=== PATIENT | female | born 1955 | race Caucasian/White ===

== ENCOUNTER 2017-09-27 08:20 | Inpatient (IN) ==
[2017-09-21 17:50] LABS: Appearance,Urine HAZY; Bacteria,Urine 0 /hpf (0); Bilirubin,Urine NEG (NEG); Color,Urine YELLOW; Glucose,Urine (UA) NEGATIVE (NEG); Leukocyte Esterase,Urine 25 /uL (NEG); Mucus,Urine MANY /hpf (0); Nitrate,Urine NEG (NEG); Protein,Urine NEG (NEG); Specific Gravity,Urine 1.024 (1.000-1.035); Urine Blood NEG mg/dL (<0.03); Urine Hyaline Cast 3 /lpf (0-2); Urine RBC 2 /hpf (0-1); Urine Squamous Epithelial Cell 3 /hpf (0-4); Urine Transitional Epi Cells 1 /hpf (0-2); Urine WBC 3 /hpf (0-4)
[2017-09-21 17:57] LABS: Basophils # (Auto) 0 K/mcL (0.0-0.3); Basophils % (Auto) 0.3 % (0.0-2.0); Eosinophils # (Auto) 0.3 K/mcL (0.0-0.7); Eosinophils % (Auto) 3.5 % (0.0-7.0); Granulocytes % (Auto) 49.6 % (38.0-78.0); Lymphocytes # (Auto) 3.3 K/mcL (1.5-4.8); Lymphocytes % (Auto) 39.4 % (15.5-49.0); Mean Cell Volume 93.4 fL (80.0-100.0); Mean Corpuscular HGB Conc 33.2 g/dL (31.0-36.0); Monocytes # (Auto) 0.6 K/mcL (0.1-0.9); Monocytes % (Auto) 7.2 % (1.0-12.0); Platelet Count 169 K/mcL (140-440); RBC 4.21 M/mcL (4.00-5.20); Red Cell Distribution Width 14.9 % (11.5-14.5)
[2017-09-21 17:58] LABS: Blood Urea Nitrogen 13 mg/dl (6-20)
[~2017-09-27 08:20] MED LIST: CELECOXIB 200 MG CAPSULE PO SCH; PREGABALIN 75 MG CAPSULE PO SCH; ceFAZolin 1 GM VIAL IV SCH; oxyCODONE 10 MG TAB.ER.12H PO SCH
[2017-09-27] MEDS ORDERED: ONDANSETRON 4 MG/2 ML VIAL IV ONE (10:55)
[2017-09-27] MEDS ORDERED: TRANEXAMIC ACID 1,000 MG/10 ML VIAL IV ONE ×2 (10:55→12:19)
[2017-09-27] MEDS ORDERED: PROPOFOL 200 MG/20 ML VIAL IV ONE (10:55)
[2017-09-27] MEDS ORDERED: LIDOCAINE HCL/PF 100 MG/5 ML SYRINGE IV ONE (10:55)
[2017-09-27] MEDS ORDERED: MIDAZOLAM 2 MG/2 ML VIAL IV ONE (10:55)
[2017-09-27] MEDS ORDERED: GLYCOPYRROLATE 0.2 MG/ML VIAL IV ONE (10:55)
[2017-09-27] MEDS ORDERED: PHENYLEPHRINE 10 MG/ML VIAL IV ONE (10:55)
[2017-09-27] MEDS ORDERED: DEXAMETHASONE 10 MG/ML VIAL IV ONE (10:55)
[2017-09-27] MEDS ORDERED: HEPARIN 20,000 UNIT/ML VIAL IR ONE (11:30)
[2017-09-27] MEDS ORDERED: FLUMAZENIL 0.1 MG/ML ML IV PRN (12:14)
[2017-09-27] MEDS ORDERED: PROMETHAZINE 25 MG/ML VIAL IV PRN (12:14)
[2017-09-27] MEDS ORDERED: fentaNYL 100 MCG/2 ML VIAL IV PRN (12:14)
[2017-09-27] MEDS ORDERED: ONDANSETRON 4 MG/2 ML VIAL IV PRN ×2 (12:14→12:19)
[2017-09-27] MEDS ORDERED: ACETAMINOPHEN 1,000 MG/100 ML BOTTLE IV ONE (12:14)
[2017-09-27] MEDS ORDERED: NALOXONE HCL 0.4 MG/ML VIAL IV PRN (12:14)
[2017-09-27] MEDS ORDERED: LACTATED RINGERS 250 ML IV PRN (12:14)
[2017-09-27] MEDS ORDERED: IPRATROPIUM/ALBUTEROL 3 ML AMPUL.NEB NEB PRN (12:14)
[2017-09-27] MEDS ORDERED: LACTATED RINGERS 1,000 ML IV SCH (12:15)
[2017-09-27] MEDS ORDERED: BENZOCAINE/MENTHOL 1 LOZENGE PO PRN (12:19)
[2017-09-27] MEDS ORDERED: POLYETHYLENE GLYCOL 3350 17 GM PACKET PO PRN (12:19)
[2017-09-27] MEDS ORDERED: HYDROmorphone 2 MG/ML SYRINGE IV PRN (12:19)
[2017-09-27] MEDS ORDERED: MAGNESIUM HYDROXIDE 30 ML ORAL.SUSP PO PRN (12:19)
[2017-09-27] MEDS ORDERED: KETOROLAC 30 MG/ML VIAL IV PRN (12:19)
[2017-09-27] MEDS ORDERED: FLEETS ADULT ENEMA PR PRN (12:19)
[2017-09-27] MEDS ORDERED: BISACODYL 10 MG SUPP.RECT PR PRN (12:19)
--- NOTE | 2017-09-27 12:19 | Brief Operative Note ---
Date of procedure: 09/27/17 Pre-op diagnosis: R hip severe DJD Post-op diagnosis: same Procedure: Right anterior total hip arthroplasty Grafts/Implants: Yes (Depuy 7 HO Actis stem, +1 32mm delta head, 50mm cup, neutral altrx liner) Anesthesia: spinal, GLMA Findings: severe arthritis Complications: none Surgeon: Hakeem Wilcox Metal Refiner: Mark De La Paz Estimated blood loss (cc): 300 Specimens Removed/Pathology: none sent Condition: stable Disposition: PACU
[2017-09-27] MEDS ORDERED: traMADol 50 MG TABLET PO PRN (12:23)
[2017-09-27] MEDS: MEPERIDINE 25 MG/ML SYRINGE IV PRN ×2 (13:00→13:06)
--- NOTE | 2017-09-27 13:49 | XRay Report ---
CLINICAL INFORMATION: Post-op Total Hip COMPARISON: None. FINDINGS: Right total hip prostheses is anatomically aligned. There is no osseous abnormality. Both SI and hip joints are normal. Soft tissue swelling seen as expected IMPRESSION: Negative Interpreted and Authenticated by: Juno Walters 09/27/17
[2017-09-27] MEDS: 0.9 % SODIUM CHLORIDE 1,000 ML IV SCH ×2 (14:47→21:39)
[2017-09-27] MEDS: 0.9 % SODIUM CHLORIDE 10 ML SYRINGE IV SCH ×2 (14:48→21:39)
--- NOTE | 2017-09-27 15:05 | Discharge Summary ---
Ortho Discharge - [facility] - Patient Instructions Diet: Regular Diet Activity: activity as tolerated, weight bearing as tolerated Total Hip Protocol: Follow activity instructions as provided by Physical Therapy. Dressing Care: May shower in 2 days, Grayson Ag - leave on for 5 days - Follow Up Plan Follow Up Appointments: Michael Ferrari PA-C [Physician Driller And Broacher] - Disposition: Home, Self-Care Prognosis: Good Rehab Potential: Good - Orders For Discharge Additional Discharge Orders: Physical Therapy at Discharge - [facility] Location: Determined By Patient Toilet Riser Discharge Order Location: Determined By Patient Walker Location: Determined By Patient
[2017-09-27] MEDS: oxyCODONE/APAP 5/325MG TABLET PO PRN ×2 (18:17→22:35)
--- NOTE | 2017-09-27 18:37 | XRay Report ---
CLINICAL INFORMATION: INTRA OP RIGHT TOTAL HIP ARTHROPLASTY ANTERIOR COMPARISON: None. FINDINGS: Images from the OR show right total hip prostheses which is anatomically aligned. No osseous abnormalities. Soft tissues normal IMPRESSION: ] Right hip prostheses which is anatomically aligned Interpreted and Authenticated by: Juno Walters 09/27/17
[2017-09-27] MEDS: ceFAZolin 1 GM VIAL IV SCH (20:23)
[2017-09-27] MEDS: ASPIRIN 325 MG ENTERIC COATED TABLET PO SCH (20:24)
[2017-09-27] MEDS: DOCUSATE SODIUM 100 MG CAPSULE PO SCH (20:24)
[2017-09-27] MEDS ORDERED: SERTRALINE 50 MG TABLET PO SCH (21:00)
[2017-09-27] MEDS ORDERED: SENNOSIDES 1 TABLET PO SCH (21:00)
[2017-09-27] MEDS ORDERED: traZODone HCL 50 MG TABLET PO SCH (21:00)
[2017-09-28] MEDS: oxyCODONE/APAP 5/325MG TABLET PO PRN ×2 (03:34→09:05)
[2017-09-28] MEDS: 0.9 % SODIUM CHLORIDE 10 ML SYRINGE IV SCH (05:09)
[2017-09-28] MEDS: ceFAZolin 1 GM VIAL IV SCH (05:09)
[2017-09-28] MEDS: 0.9 % SODIUM CHLORIDE 1,000 ML IV SCH (06:39)
[2017-09-28] MEDS ORDERED: ASCORBIC ACID 500 MG TABLET PO SCH (09:00)
[2017-09-28] MEDS: ASPIRIN 325 MG ENTERIC COATED TABLET PO SCH (09:05)
[2017-09-28] MEDS: DOCUSATE SODIUM 100 MG CAPSULE PO SCH (09:05)
--- NOTE | 2017-09-28 09:06 | Operative Note ---
DATE OF OPERATION: 09/27/2017 PREOPERATIVE DIAGNOSIS: Right hip severe osteoarthritis. POSTOPERATIVE DIAGNOSIS: Right hip severe osteoarthritis. PROCEDURE PERFORMED: Right total hip arthroplasty through a direct anterior approach using the DePuy Actis size 7 high offset femoral stem; a +1, 32 mm delta ceramic head ball with a 50 mm [place] cup and a neutral AltrX liner. SURGEON: Hakeem Wilcox M.D. ART DEALER: Mark De La Paz PA-C. ANESTHESIA: Spinal plus general. DRAINS: None. SPECIMENS: Femoral head and reamings, which were discarded. BLOOD LOSS: 300 mL. COMPLICATIONS: None. POSTOPERATIVE CONDITION: Stable. INDICATIONS FOR SURGERY: This is a 61-year-old female who has had rapidly progressing severe right hip pain. Radiographs showed severe ccci-gl-nvte osteoarthritis. FINDINGS AT SURGERY: As above. Post implantation showed good equalization of leg length and offset with components in satisfactory position. PROCEDURE IN DETAIL: The patient had been seen preoperatively. Informed consent had been obtained after discussion of risks and benefits of surgery. Risks including, but not limited to, bleeding, possibly requiring transfusion; infection, possibly requiring implant removal and prolonged IV antibiotics; injury to nerves, blood vessels or other surrounding structures; anesthetic risks; leg length discrepancy; dislocation; fracture; DVT and pulmonary embolus risks; and the possibility of needing further revision surgery. She understood these risks and wished to proceed. Correct operative site was marked and then patient was taken to the operating room. General anesthesia was induced after getting spinal in preop holding. She was carefully positioned on the fracture table, and the right hip and groin were carefully prepped and draped in normal sterile fashion, and a time-out was performed verifying patient name, operative site, and plan. Standard anterior approach incision was made with a scalpel through skin and subcutaneous tissue. Careful blunt dissection was taken down. She did not have the normal tensor muscle belly configuration and fascia. We did place a ring retractor area after irrigating with Irrisept. We then dissected small tensor muscle belly lateral and then placed our blunt cobra retractors. We coagulated and cut circumflex vessels, and then anterior capsulectomy was performed as well as capsule releases. Corkscrew was placed in the femoral head and then osteotome used under fluoro to identify our neck cut trajectory. We then used an oscillating tip saw to osteotomize the neck and then the head was removed. The acetabulum was exposed and soft tissue removed circumferentially and from the floor. We then started reaming, directly medializing to the tear drop and then increasing reamer size and angle until a 49 mm got rim ream. We trialed a 49 and had press-fit, so a 50, 3-hole [place] cup was opened. We irrigated the acetabulum with Irrisept. After a minute, we pulse lavaged copiously with saline and then impacted the cup at approximately 35 to 40 degrees of inclination and 25 to 30 degrees of anteversion. We did get good press-fit, so we went ahead and placed a center hole cover and a neutral AltrX liner. She did have some anterior osteophyte which was removed with a curved osteotome. We then exposed the proximal femur after removing traction. We externally rotated and adducted. Capsule releases were done out to the trochanter laterally and then along the posterior neck. We then prepared the femur with the sequential broaching using the Actis, a size 7 as eventually the size that seated at the neck cut level. We trialed initially a standard offset with a +1 head ball. Our leg length was good on fluoro check. However, offset was under offset, so we went ahead and opened a 7 high offset stem. The femoral canal was irrigated with Irrisept. After a minute, pulse lavage with saline. We impacted the 7 high offset Actis stem. It seated down on the neck cut of the collar so we went ahead and opened a +1, 32 mm delta ceramic head ball. The stem was carefully cleaned and dried and then the head ball briskly impacted. We then reduced the hip. Final fluoro images were taken which showed excellent mandaeism of leg length and offset. We saved and printed those images. We irrigated with Irrisept again. After a minute, pulse lavage with saline. We closed the tensor fascia with running #1 Vicryl, one proximal and one running distal. Final Irrisept irrigation was done. After a minute, final pulse lavage, and then fat was tacked to fascia and then Monocryl for subcutaneous and glenroy for skin. Xeroform and sterile dressing were applied and the patient was awakened, extubated, and transferred to recovery in stable condition. REE:margarita Job ID: [id number] Doc ID: [id number] Hakeem Wilcox MD
== END 2017-09-28 10:22 | disposition home or self-care (01) | DRG 470 ==
LOC: MEDSUR 08:20
PROVIDERS: ADMIT Orthopaedic Surgery; ATTEND Orthopaedic Surgery

== ENCOUNTER 2018-06-27 07:25 | Inpatient (IN) ==
[2018-06-25 12:20] LABS: Blood Urea Nitrogen 21 mg/dl (8-23)
[2018-06-25 12:32] LABS: Basophils # (Auto) 0 K/mcL (0.0-0.3); Basophils % (Auto) 0.5 % (0.0-2.0); Eosinophils # (Auto) 0.2 K/mcL (0.0-0.7); Eosinophils % (Auto) 4.3 % (0.0-7.0); Granulocytes % (Auto) 58.4 % (38.0-78.0); Lymphocytes # (Auto) 1.7 K/mcL (1.5-4.8); Lymphocytes % (Auto) 29.3 % (15.5-49.0); Mean Cell Volume 91.5 fL (80.0-100.0); Mean Corpuscular HGB Conc 33.3 g/dL (31.0-36.0); Mean Corpuscular Hemoglobin 30.5 pg (26.0-34.0); Monocytes # (Auto) 0.4 K/mcL (0.1-0.9); Monocytes % (Auto) 7.5 % (1.0-12.0); Platelet Count 122 K/mcL (140-440); RBC 3.92 M/mcL (4.00-5.20); Red Cell Distribution Width 16.1 % (11.5-14.5)
[2018-06-25 13:45] LABS: Appearance,Urine CLEAR; Bacteria,Urine FEW /hpf (0); Bilirubin,Urine NEG (NEG); Calcium Oxalate Crystals,Urine MOD /hpf (0); Color,Urine YELLOW; Glucose,Urine (UA) NEGATIVE (NEG); Leukocyte Esterase,Urine 25 /uL (NEG); Mucus,Urine FEW /hpf (0); Protein,Urine NEG (NEG); Specific Gravity,Urine 1.021 (1.000-1.035); Urine Blood NEG mg/dL (<0.03); Urine RBC 5 /hpf (0-1); Urine Squamous Epithelial Cell 6 /hpf (0-4); Urine WBC 1 /hpf (0-4)
[~2018-06-27 07:25] MED LIST changes: +0.9 % SODIUM CHLORIDE 9 ML, KETOROLAC 30 MG, ROPIVACAINE HCL/PF 49.5 ML, EPINEPHrine 0.... IJ SCH
[2018-06-27] MEDS ORDERED: FLUMAZENIL 0.1 MG/ML ML IV PRN (11:07)
[2018-06-27] MEDS ORDERED: MEPERIDINE 25 MG/ML SYRINGE IV PRN (11:07)
[2018-06-27] MEDS ORDERED: METHOCARBAMOL 1,000 MG/10 ML VIAL IV PRN (11:07)
[2018-06-27] MEDS ORDERED: ACETAMINOPHEN 1,000 MG/100 ML BOTTLE IV ONE (11:07)
[2018-06-27] MEDS ORDERED: ePHEDrine 50 MG/ML AMPUL IV PRN (11:07)
[2018-06-27] MEDS ORDERED: IPRATROPIUM/ALBUTEROL 3 ML AMPUL.NEB NEB PRN (11:07)
[2018-06-27] MEDS ORDERED: PROMETHAZINE 25 MG/ML VIAL IV PRN (11:07)
[2018-06-27] MEDS ORDERED: NALOXONE HCL 0.4 MG/ML VIAL IV PRN (11:07)
[2018-06-27] MEDS ORDERED: HYDROmorphone 2 MG/ML VIAL IV PRN (11:07)
[2018-06-27] MEDS ORDERED: diphenhydrAMINE 50 MG/ML VIAL IV PRN (11:07)
[2018-06-27] MEDS ORDERED: PROMETHAZINE 25 MG/ML VIAL IM PRN (11:07)
[2018-06-27] MEDS ORDERED: ONDANSETRON 4 MG/2 ML VIAL IV PRN ×2 (11:07→11:38)
[2018-06-27] MEDS ORDERED: METOPROLOL TARTRATE 5 MG/5 ML VIAL IV PRN (11:07)
[2018-06-27] MEDS ORDERED: fentaNYL 100 MCG/2 ML VIAL IV PRN (11:07)
[2018-06-27] MEDS ORDERED: MEPERIDINE 50 MG/ML INJECTION IM PRN (11:07)
--- NOTE | 2018-06-27 11:35 | Brief Operative Note ---
Date of procedure: 06/27/18 Pre-op diagnosis: tibial plateau fracture w subsidence s/p L bicomp arthroplasty Post-op diagnosis: same Procedure: 1)Removal of bicomp arthroplasty 2)Revision total knee arthroplasty Grafts/Implants: Yes (3 PS Bipin Triatholon femur, 3 tibia w stem, 11 x3 insert) Anesthesia: spinal, GLMA Findings: tibial plateau nonunion w subsidence Complications: none Surgeon: Hakeem Wilcox Screen Printing Inspector: Michael Ferrari Estimated blood loss (cc): 30 Specimens Removed/Pathology: other (bicomp components, c&s)
[2018-06-27] MEDS ORDERED: MAGNESIUM HYDROXIDE 30 ML ORAL.SUSP PO PRN (11:38)
[2018-06-27] MEDS ORDERED: BENZOCAINE/MENTHOL 1 LOZENGE PO PRN (11:38)
[2018-06-27] MEDS ORDERED: TRANEXAMIC ACID 1,000 MG/10 ML VIAL IV SCH (11:38)
[2018-06-27] MEDS ORDERED: POLYETHYLENE GLYCOL 3350 17 GM PACKET PO PRN (11:38)
[2018-06-27] MEDS ORDERED: FLEETS ADULT ENEMA PR PRN (11:38)
[2018-06-27] MEDS ORDERED: BISACODYL 10 MG SUPP.RECT PR PRN (11:38)
--- NOTE | 2018-06-27 12:23 | XRay Report ---
CLINICAL INFORMATION: Total knee revision COMPARISON: 07/19/2017. FINDINGS: Total knee prostheses is in anatomic alignment. No osseous abnormality. Soft tissues swelling seen as expected. IMPRESSION: Negative Interpreted and Authenticated by: Juno Walters 06/27/18
[2018-06-27] MEDS: 0.9 % SODIUM CHLORIDE 1,000 ML IV SCH ×2 (12:56→23:12)
[2018-06-27] MEDS: 0.9 % SODIUM CHLORIDE 10 ML SYRINGE IV SCH ×2 (13:14→21:02)
[2018-06-27] MEDS: HYDROcodone/APAP 10/325MG TABLET PO PRN ×2 (14:11→20:54)
[2018-06-27] MEDS: HYDROmorphone 2 MG/ML VIAL IV PRN (17:11)
[2018-06-27] MEDS: ceFAZolin 1 GM VIAL IV SCH (17:27)
[2018-06-27] MEDS: DOCUSATE SODIUM 100 MG CAPSULE PO SCH (20:55)
[2018-06-27] MEDS: ASPIRIN 325 MG ENTERIC COATED TABLET PO SCH (20:55)
[2018-06-27] MEDS ORDERED: SENNOSIDES 1 TABLET PO SCH (21:00)
[2018-06-27] MEDS ORDERED: SERTRALINE 50 MG TABLET PO SCH (21:00)
[2018-06-27] MEDS ORDERED: traZODone HCL 100 MG TABLET PO SCH (21:00)
[2018-06-28] MEDS: 0.9 % SODIUM CHLORIDE 10 ML SYRINGE IV SCH ×2 (00:54→05:26)
[2018-06-28] MEDS: ceFAZolin 1 GM VIAL IV SCH (00:54)
[2018-06-28] MEDS: HYDROcodone/APAP 10/325MG TABLET PO PRN ×2 (01:06→05:25)
[2018-06-28] MEDS: HYDROmorphone 2 MG/ML VIAL IV PRN ×2 (03:24→08:19)
--- NOTE | 2018-06-28 07:35 | Operative Note ---
DATE OF OPERATION: 06/27/2018 PREOPERATIVE DIAGNOSIS: Left medial tibial plateau fracture status post bicompartmental arthroplasty with subsequent subsidence of the tibial component. POSTOPERATIVE DIAGNOSIS: Left medial tibial plateau fracture status post bicompartmental arthroplasty with subsequent subsidence of the tibial component. PROCEDURES PERFORMED: 1. Removal of bicompartmental knee arthroplasty. 2. Revision total knee arthroplasty with placement of a Bipin Triathlon size 3 posterior stabilized femoral component, size 3 tibial baseplate with a 14 mm 100 length stem and a 10 mm medial augment with an 11 mm X3 tibial insert. SURGEON: Hakeem Wilcox MD SCREWDOWN OPERATOR: Betito Ferrari PA-C. ANESTHESIA: Spinal plus general. DRAINS: None. SPECIMENS REMOVED: Bicompartmental arthroplasty components as well as a culture and sensitivity. BLOOD LOSS: 30 mL COMPLICATIONS: None. POSTOPERATIVE CONDITION: Stable. INDICATIONS FOR SURGERY: This is a 62-year-old female who I believe nearly a year ago underwent a bicompartmental knee arthroplasty. She had films done at 6 weeks which showed no apparent fracture. She apparently continued to have pain and followed up in December of this year and x-rays did not show obvious fracture. She continued having pain and came in more recently and x-rays were taken and there was a medial tibial plateau fracture with significant subsidence of the medial tibial component. FINDINGS AT SURGERY: There was a nonunion of the tibial plateau fracture with significant subsidence. Post implantation showed what seemed to be good stability, range of motion and patellar tracking. PROCEDURE IN DETAIL: The patient had been seen preoperatively and informed consent had been obtained after discussion of risks, benefits of surgery. Risks including, but not limited to, bleeding, possibly requiring transfusion; infection, possibly requiring implant removal, prolonged IV antibiotics; injury to nerves, blood vessels other surrounding structures; anesthetic risks; incomplete or no resolution of her symptoms; DVT and pulmonary embolus risks; and the possibility of needing further revision surgeries, stiffness, pain, swelling. She understood these risks and wished to proceed. Correct operative site was marked in preoperative holding and patient received spinal anesthesia. She was then taken to the operating room and LMA general given. The left lower extremity was then carefully prepped and draped in normal sterile fashion and a timeout was performed verifying patient name, operative site, and plan. Esmarch was used to exsanguinate the extremity and tourniquet was inflated. All skin surfaces were covered with Ioban and then a midline incision was made with scalpel through skin and subcutaneous tissue through her previous scar. IrriSept was irrigated and then a medial parapatellar arthrotomy made. A culture and sensitivity was taken, although the joint fluid looked normal. Bovie was used to expose subperiosteally the proximal tibia and we were able to visualize the subsided tibial component and the nonunion. We then excised some of the retropatellar tendon fat pad scar tissue to allow us to sublux the patella off to the side. We then used flexible osteotomes to go around the implant edges of the patellofemoral and femoral component and then a fishmouth was used to disimpact. We then used an osteotome to remove the polyethylene insert from the tibia and then used a flexible osteotome around the tibial implant, although this was difficult as the fractured bone wanted to just stay with the implant. Once we had all the implants removed, except for the patellar button, we transected the ACL and removed the lateral meniscus. A drill hole was made in the distal femur. Flexible IM jam was passed up the femur. This was pinned into place. An initial 8 mm resection did not contact the medial side, so I went ahead and moved this up 2 mm. This did give us a freshening cut off the medial side and cut the lateral side, so we then used our sizer block. Due to the absence posterior medially I had to identify the approximate rotation off the epicondylar axis. She did size best it looked like to a size 3. I did have to adjust position, so we did not have a lot of bone left anteriorly. Once I had this positioned we went ahead and did our anterior cut, which seemed to be in good position. We went ahead then and did our posterior and chamfer cuts. Skin posterior medial did not really contact due to the removed implant and we then subluxed the tibia forward. A drill hole was made in the ACL footprint area. IM jam was passed down. We stylused off of the lateral tibial plateau, pinned the block into place and made our cut. We then switched out to the revision cutting block to do our medial augment cut. We made our vertical cut with the reciprocating saw, the horizontal cut at 5 mm. However, it was an air ball cut so we did end up having to move down to the 10 mm cut to contact bone. We then reamed after placing our tibial trial. We reamed the tibial stem up to a size 14. We then placed our entire stem trial and we then placed the 9 mm insert and checked our patellar tracking, which was good, so we went ahead and removed the trial implants. Definitive implants were opened except for the tibial insert. Antibiotic cement was mixed. We filled the joint with IrriSept, after a minute pulse lavaged with saline. We then cemented the tibia proximally. We left the stem uncemented. Prior to cementation, we did cut the box for the posterior stabilized femoral component. After the tibial implant was cemented we repeated the process of using a CO2 gun and then cementing the femur. The 9 insert trial was placed and the knee was taken into extension. Excess cement removed. The joint was filled with IrriSept and then we injected pain cocktail in the pericapsular and subcutaneous tissues while cement was hardening. Once cement had fully hardened, we flexed the knee up and did a final cement removal. I trialed the 11, which gave us even better stability. We opened an 11 insert. We placed IrriSept on the tray and then impacted the insert. Final IrriSept irrigation was done and after a minute final pulse lavage. The knee was placed in 45 degrees of flexion. Then #2 FiberWire [id number] were used around the superior quadrant of the patella, #1 Vicryls were used around the inferior quadrant, running #1 Vicryl for patellar tendon and quad tendon. Final IrriSept irrigation was done, after a minute final pulse lavage and a 2-0 Monocryl for subcutaneous and glenroy for skin. Xeroform sterile dressings were applied. Tourniquet was released. The patient was awakened, extubated, and transferred to recovery in stable condition. REE:fay Job ID: [id number] Doc ID: [id number] Hakeem Wilcox MD
--- NOTE | 2018-06-28 07:46 | Discharge Summary ---
Providers - Providers Patient information: Note initiated : 06/28/18 at 7:44 am Service Date, if different from initiated Date: [] Patient: Indu Lazo 62 y/o F admitted on 06/27/18 for Left Revision from Bicompartmental Knee to . Chief Complaint: [] Discharge date: 06/28/18 Hospitalization Hospital course: Pt was admitted for a revision total knee arthroplasty. Pt underwent the procedure on the day of admission and was transferred to the floor for IV pain meds, IV abx, and PT. Pt discharged on post-op day 1. Will use ASA for DVT prophylaxis. Will attend out-pt PT. Discharge diagnosis: L knee medial tibial plateau fx s/p partial knee arthroplasty Exam - Exam Clean and dry: Yes Weight bearing status: as tolerated Ortho Discharge - TKA - Patient Instructions Diet: Regular Diet Activity: activity as tolerated Total Knee Protocol: For Total Knee: Start ROM VAHE with stationary bike or rocking chair. Work on gaining full extension of knee. Posterior dislocation precautions provided. Hip abductor strengthening and gait training instructions provided. Apply Cryocuff as instructed. Dressing Care: May shower in 2 days - Follow Up Plan Disposition: Home, Self-Care Prognosis: Good Rehab Potential: Good Overall status at discharge: patient is progressing back to baseline - Orders For Discharge Prescriptions: Aspirin [Ecotrin] 325 mg PO BID #30 tab.ec HYDROcodone/APAP 10/325MG [[place] 10-325Mg] 1 - 2 tab PO Q4HP PRN #90 tab PRN Reason: Pain Level 3-6 Pending Studies Resuscitation Status Full Code Diet Regular Diet Start MonJun 27 1140 Hydrocodone Bitart/Acetaminophen ([place] 10/325mg) 0 tab PO Q4HP PRN PRN Reason: PAIN LEVEL 3-6 Last Admin: 06/28/18 05:25 Dose: 2 tab Admin: 06/28/18 01:06 Dose: 2 tab Admin: 06/27/18 20:54 Dose: 2 tab Admin: 06/27/18 14:11 Dose: 2 tab Aspirin (Ecotrin) 325 mg PO BID [facility] Last Admin: 06/27/18 20:55 Dose: 325 mg Docusate Sodium (Colace) 100 mg PO BID [facility] Last Admin: 06/27/18 20:55 Dose: 100 mg Hydromorphone HCl (Dilaudid) 0 mg IV Q2HP PRN PRN Reason: PAIN LEVEL > 6 Last Admin: 06/28/18 03:24 Dose: 1 mg Admin: 06/27/18 17:11 Dose: 0.5 mg Senna (Senokot) 2 tab PO HS [facility] Last Admin: 06/27/18 20:55 Dose: 2 tab Sertraline HCl (Zoloft) 50 mg PO [facility] Last Admin: 06/27/18 20:55 Dose: 50 mg Sodium Chloride (Saline Flush) 10 ml IV Q8 [facility] Last Admin: 06/28/18 05:26 Dose: 10 ml Admin: 06/28/18 00:54 Dose: 10 ml Admin: 06/27/18 21:02 Dose: Not Given Admin: 06/27/18 13:14 Dose: Not Given Trazodone HCl (Desyrel) 100 mg PO [facility] Last Admin: 06/27/18 20:55 Dose: 100 mg Shift Summary 06/28/18 03:54 Shift Summary by Idalia Brown VSFelix. A&Ox4. Medicated with 10mg PO [place] x 2 and 1 mg IV Dilaudid x 1, last at approx. 0330. Up with SBA and FWW. IV to L. wrist is SL. Using cryo cuff. Reinforced dressing to L knee and is C/D/I. Left foot cap refill <3, pulse present and skin warm. Urinating adequately. Denies nausea. Initialized on 06/28/18 03:54 - END OF NOTE
[2018-06-28] MEDS: DOCUSATE SODIUM 100 MG CAPSULE PO SCH (08:19)
[2018-06-28] MEDS: ASPIRIN 325 MG ENTERIC COATED TABLET PO SCH (08:19)
[2018-06-28] MEDS: oxyCODONE/APAP 5/325MG TABLET PO PRN ×2 (09:03→13:09)
[2018-06-28] MEDS ORDERED: METHOCARBAMOL 750 MG TABLET PO PRN (11:33)
[2019-06-27] MEDS ORDERED: ONDANSETRON 4 MG/2 ML VIAL IV ONE (09:10)
[2019-06-27] MEDS ORDERED: GLYCOPYRROLATE 0.2 MG/ML VIAL IV ONE (09:10)
[2019-06-27] MEDS ORDERED: LIDOCAINE HCL/PF 100 MG/5 ML SYRINGE IV ONE (09:10)
[2019-06-27] MEDS ORDERED: MIDAZOLAM 5 MG/5 ML VIAL IV ONE (09:10)
[2019-06-27] MEDS ORDERED: TRANEXAMIC ACID 1,000 MG/10 ML VIAL IV ONE (09:10)
[2019-06-27] MEDS ORDERED: PROPOFOL 200 MG/20 ML VIAL IV ONE (09:10)
[2019-06-27] MEDS ORDERED: DEXAMETHASONE 10 MG/ML VIAL IV ONE (09:10)
== END 2018-06-28 13:56 | disposition home or self-care (01) | DRG 467 ==
LOC: MEDSUR 07:25
PROVIDERS: ADMIT Orthopaedic Surgery; ATTEND Orthopaedic Surgery